=== PATIENT | male | born 1990 | race Caucasian/White ===

== ENCOUNTER 2018-06-05 17:12 | Emergency (ER) | payer SELFPAY ==
[2018-06-05 18:21] VITALS: BP 110/68
--- NOTE | 2018-06-05 18:36 | UC ---
Eye Complaint HPI - HPI Summary HPI Summary: 27 year old male comes in with bilateral eye discharge and irritation. He's had an upper respiratory tract infection for several days and he's also been having yellow discharge and crusting in his eyes when he wakes up. Been using some [id number] eyedrops which helped briefly but then today comes back. Overall is minimal rhinorrhea and he feels like his sinuses are somewhat clogged up but there clearing. No vision change no pain no known trauma no welding. - History of Current Complaint Chief Complaint: UCEye Stated Complaint: BURNING/ITCHING BOTH EYES Time Seen by Provider: 06/05/18 18:29 Pain Intensity: 5 - Allergies/Home Medications Allergies/Adverse Reactions: Allergies Allergy/AdvReac Type Severity Reaction Status Date / Time clarithromycin Allergy Hives Verified 06/05/18 18:18 PMH/Surg Hx/FS Hx/Imm Hx Previously Healthy: Yes - Surgical History Surgical History: Yes Surgery Procedure, Year, and Place: right hand, heel cords - Family History Known Family History: Positive: Non-Contributory - Social History Alcohol Use: Rare Substance Use Type: None Substance Use Comment - Amount & Last Used: occasional Smoking Status (MU): Current Some Day Smoker Type: Cigarettes Amount Used/How Often: 5-6 CIGS DAILY Household Exposure Type: Cigarettes - Immunization History Most Recent Influenza Vaccination: no Review of Systems All Other Systems Reviewed And Are Negative: Yes Constitutional: Positive: Negative Skin: Positive: Negative Eyes: Positive: Drainage, Eye Redness. Negative: Photophobia ENT: Positive: Nasal Discharge, Sinus Congestion Respiratory: Positive: Negative Cardiovascular: Positive: Negative Gastrointestinal: Positive: Negative Motor: Positive: Negative Neurovascular: Positive: Negative Musculoskeletal: Positive: Negative Neurological: Positive: Negative Psychological: Positive: Negative Is Patient Immunocompromised?: No Physical Exam Triage Information Reviewed: Yes Appearance: Well-Appearing, No Pain Distress, Well-Nourished Vital Signs: Initial Vital Signs Temp 98.4 F 06/05/18 18:19 Pulse 50 06/05/18 18:19 Resp 14 06/05/18 18:19 BP 110/68 06/05/18 18:19 Pulse Ox 98 06/05/18 18:19 Vital Signs Reviewed: Yes Eyes: Positive: Conjunctiva Inflamed, Discharge ENT: Positive: Nasal congestion, TMs normal Neck exam: Normal Neck: Positive: Supple Respiratory: Positive: Lungs clear, Normal breath sounds, No respiratory distress Cardiovascular: Positive: RRR Musculoskeletal Exam: Normal Musculoskeletal: Positive: Strength Intact, ROM Intact Neurological Exam: Normal Neurological: Positive: Alert, Muscle Tone Normal Psychological Exam: Normal Psychological: Positive: Age Appropriate Behavior Skin Exam: Normal Eye Complaint Course/Dx - Differential Dx/Diagnosis Provider Diagnosis: Conjunctivitis Discharge - Sign-Out/Discharge Documenting (check all that apply): Patient Departure All imaging exams completed and their final reports reviewed: No Studies - Discharge Plan Condition: Stable Disposition: HOME Prescriptions: Tobramycin 0.3% OPHTH.NARCISO* 1 drop BOTH EYES Q4H #1 btl Patient Education Materials: Upper Respiratory Infection (ED), Conjunctivitis ( ED) Referrals: [facility] [Outside] Robert Isbell MD [Medical Doctor] - Additional Instructions: FOLLOW UP WITH OPHTHALMOLOGY IF NOT COMPLETELY IMPROVED. GET RECHECKED FOR ANY WORSENING OF YOUR CONDITION OR QUESTIONS OR CONCERNS. - Billing Disposition and Condition Condition: STABLE Disposition: Home
== END 2018-06-05 18:42 | disposition home or self-care (01) ==
LOC: UCCORT 17:12
DX: H10.9 Unspecified conjunctivitis (principal); J06.9 Acute upper respiratory infection, unspecified; F17.210 Nicotine dependence, cigarettes, uncomplicated; Z88.1 Allergy status to other antibiotic agents
CPT/HCPCS: 99212; G0463

== ENCOUNTER 2018-06-22 18:21 | Emergency (ER) | payer BC ==
--- NOTE | 2018-06-22 19:17 | UC ---
Ear Complaint HPI - HPI Summary HPI Summary: 27 yo male presents with RIGHT ear pain for the last 5 days - worse over the last 2 days. He tells me that he has a wisdom tooth in the right side of his mouth that he is unsure if this is the pain or if it is from his ear. Does have some pressure in his ear and slight muffled sounds at times. No drainage from the ear. Denies fever, sinus symptoms, sore throat, cough. - History of Current Complaint Stated Complaint: EAR PAIN Time Seen by Provider: 06/22/18 19:17 Hx Obtained From: Patient Onset/Duration: Gradual Onset Severity Initially: Mild Severity Currently: Moderate Pain Intensity: 5 Pain Scale Used: 0-10 Numeric - Allergies/Home Medications Allergies/Adverse Reactions: Allergies Allergy/AdvReac Type Severity Reaction Status Date / Time clarithromycin Allergy Hives Verified 06/22/18 19:12 Home Medications: Home Medications Acetaminophen [Tylenol Extra Strength] 1,000 mg PO Q6H PRN 06/22/18 [History Confirmed 06/22/18] D-Methorphan/PE/Acetaminophen [Daytime Cold-Flu Relief Softgl] 2 each PO ONCE PRN 06/22/18 [History Confirmed 06/22/18] Ibuprofen TAB* [Advil TAB*] 400 mg PO Q6H PRN 06/22/18 [History Confirmed ] PMH/Surg Hx/FS Hx/Imm Hx - Additional Past Medical History Additional PMH: NOne - Surgical History Surgical History: Yes Surgery Procedure, Year, and Place: right hand, heel cords - Family History Known Family History: Positive: None - Social History Occupation: Employed Full-time Lives: With Family Alcohol Use: Rare Substance Use Type: None Substance Use Comment - Amount & Last Used: occasional Smoking Status (MU): Current Some Day Smoker Type: Cigarettes Amount Used/How Often: 5-6 CIGS DAILY Household Exposure Type: Cigarettes - Immunization History Most Recent Influenza Vaccination: no Review of Systems All Other Systems Reviewed And Are Negative: Yes Constitutional: Positive: Negative Skin: Positive: Negative Eyes: Positive: Negative ENT: Positive: Ear Ache Respiratory: Positive: Negative Cardiovascular: Positive: Negative Neurological: Positive: Negative Psychological: Positive: Negative Physical Exam - Summary Physical Exam Summary: GENERAL: NAD. WDWN. No pain distress. SKIN: No rashes, sores, lesions, or open wounds. HEENT: Head: AT/NC Eyes: EOM intact. Conjunctiva clear without inflammation or discharge. Ears: Hearing grossly normal. RIGHT TM with mild erythema and bulging. No canal edema or drainage. Nose: Nasal mucosa pink and moist. NTTP maxillary and frontal sinus. Throat: Posterior oropharynx without exudates, erythema, or tonsillar enlargement. Uvula midline. NECK: Supple. Nontender. No lymphadenopathy. CHEST: CTAB. No r/r/w. No accessory muscle use. Breathing comfortably and in no distress. CV: RRR. Without m/r/g. Pulses intact. NEURO: Alert. PSYCH: Age appropriate behavior. Vital Signs: Vital Signs: Temp Pulse Resp BP Pulse Ox 98.9 F 73 16 117/66 97 06/22/18 19:15 06/22/18 19:15 06/22/18 19:15 06/22/18 19:15 06/22/18 19:15 Ear Complaint Course/Dx - Course Course Of Treatment: Right otitis media - Differential Dx/Diagnosis Provider Diagnosis: Right otitis media Discharge - Sign-Out/Discharge Documenting (check all that apply): Patient Departure All imaging exams completed and their final reports reviewed: No Studies - Discharge Plan Condition: Stable Disposition: HOME Prescriptions: Amoxicillin PO (*) [Amoxicillin 875 MG (*)] 875 mg PO BID #14 tab Patient Education Materials: Ear Infection (ED) Referrals: No Primary Care Phys,NOPCP [Primary Care Provider] - Additional Instructions: If you develop a fever, shortness of breath, chest pain, new or worsening symptoms - please call your PCP or go to the ED. - Billing Disposition and Condition Condition: STABLE Disposition: Home
[2018-06-22 19:18] VITALS: BP 117/66
== END 2018-06-22 19:31 | disposition home or self-care (01) ==
LOC: UCCORT 18:21
DX: H66.91 Otitis media, unspecified, right ear (principal); F17.210 Nicotine dependence, cigarettes, uncomplicated; Z88.1 Allergy status to other antibiotic agents
CPT/HCPCS: 99212; G0463

== ENCOUNTER 2019-06-24 09:14 | Emergency (ER) | payer BC ==
[2019-06-24 10:44] VITALS: BP 111/67
--- NOTE | 2019-06-24 11:01 | UC ---
Back Pain HPI - HPI Summary HPI Summary: 28-year-old male who picked up a [id number]-[id number] daughter yesterday and felt a spasm in his right lower back and buttock. He does have a history of low back pain. He denies any saddle anesthesia and no numbness or tingling in his extremities. He denies any urinary troubles or problems with bowel movements. - History of Current Complaint Chief Complaint: UCBackPain Stated Complaint: BACK PAIN Time Seen by Provider: 06/24/19 10:55 Hx Obtained From: Patient Onset/Duration: Sudden Onset Timing: Intermittent Severity Initially: Moderate Severity Currently: Mild Pain Intensity: 7 Character: Sharp, Dull, Aching Aggravating Factor(s): Movement, Bending Alleviating Factor(s): Rest Associated Signs And Symptoms: Positive: Negative - Allergies/Home Medications Allergies/Adverse Reactions: Allergies Allergy/AdvReac Type Severity Reaction Status Date / Time clarithromycin Allergy Hives Verified 06/24/19 10:44 PMH/Surg Hx/FS Hx/Imm Hx Previously Healthy: Yes - Surgical History Surgical History: Yes Surgery Procedure, Year, and Place: right hand, heel cords-lengthened - Family History Known Family History: Positive: None, Non-Contributory - Social History Occupation: Employed Full-time Alcohol Use: Weekly Substance Use Type: None Substance Use Comment - Amount & Last Used: occasional Smoking Status (MU): Current Some Day Smoker Type: Cigarettes Amount Used/How Often: 5-6 CIGS DAILY Length of Time of Smoking/Using Tobacco: 5-6 yrs Household Exposure Type: Cigarettes - Immunization History Most Recent Influenza Vaccination: no Review of Systems All Other Systems Reviewed And Are Negative: Yes Musculoskeletal: Positive: Other: - Right lower back pain since yesterday. Is Patient Immunocompromised?: No Physical Exam Triage Information Reviewed: Yes Appearance: Well-Appearing, No Pain Distress, Well-Nourished Vital Signs: Initial Vital Signs Temp 98.5 F 06/24/19 10:38 Pulse 78 06/24/19 10:38 Resp 18 06/24/19 10:38 BP 111/67 06/24/19 10:38 Pulse Ox 99 06/24/19 10:38 Vital Signs Reviewed: Yes Respiratory: Positive: Lungs clear, Normal breath sounds, No respiratory distress, No accessory muscle use Cardiovascular: Positive: RRR, No Murmur, Pulses Normal, Brisk Capillary Refill Abdomen Description: Positive: Nontender, No Organomegaly, Soft. Negative: CVA Tenderness (R), CVA Tenderness (L), Distended, Guarding, Hepatomegaly, McBurney' s Point Tenderness, Splenomegaly Bowel Sounds: Positive: Present Musculoskeletal: Positive: Strength Intact, ROM Intact, Other: - Good peripheral pulses, neuro sensation capillary refill. Mild pain on palpation right buttock, very minimally positive right straight leg raise. No bruising, erythema, swelling or deformity. Neurological: Positive: Alert, Muscle Tone Normal - Reflexes +2 at the knees Psychological Exam: Normal Back Pain Course/Dx - Course Course Of Treatment: The patient is comfortable here. - Differential Dx/Diagnosis Provider Diagnosis: Low back strain Discharge ED - Sign-Out/Discharge Documenting (check all that apply): Patient Departure All imaging exams completed and their final reports reviewed: No Studies - Discharge Plan Condition: Good Disposition: HOME Prescriptions: Cyclobenzaprine TAB* [Flexeril 10 MG TAB*] 10 mg PO TID PRN #15 tab PRN Reason: Pain - Mild Ibuprofen TAB* [Motrin TAB* 600 MG] 600 mg PO Q8H PRN #20 tab PRN Reason: Pain - Mild Forms: *Work Release Referrals: No Primary Care Phys,NOPCP [Primary Care Provider] - [facility] [Outside] Additional Instructions: Avoid movements that cause pain, apply heat to the sore area, [facility]up with [facility] if no improvement in 3 or 4 days. No drinking alcohol or driving while taking the muscle relaxant. - Billing Disposition and Condition Condition: GOOD Disposition: Home
== END 2019-06-24 11:08 | disposition home or self-care (01) ==
LOC: UCCORT 09:14
DX: S39.012A Strain of muscle, fascia and tendon of lower back, initial encounter (principal); F17.210 Nicotine dependence, cigarettes, uncomplicated; Z88.1 Allergy status to other antibiotic agents; X58.XXXA Exposure to other specified factors, initial encounter; Y92.9 Unspecified place or not applicable
CPT/HCPCS: 99212; G0463